=== PATIENT | male | born 1975 | race Caucasian/White ===

== ENCOUNTER 2020-01-07 14:42 | Emergency (ER) | payer SELFPAY ==
--- NOTE | 2020-01-07 14:56 | EDM.PDOC ---
ED HPI GENERAL MEDICAL PROBLEM - General Chief Complaint: Lower Extremity Injury/Pain Stated Complaint: BILATERAL LEG PAIN Time Seen by Provider: 01/07/20 14:56 Source of Information: Reports: Patient History Limitations: Reports: No Limitations - History of Present Illness INITIAL COMMENTS - FREE TEXT/NARRATIVE: 44-year-old male attends the ED with complaints of pain in both of his legs. He is unsure if the complaints are related or not. He reports that he dropped something on the ground and squatted down to pick it up the other day( WednesdayJan 04) and then stood up abruptly and felt a pulling tearing sensation in his anterior thighs bilaterally but worse on the left side. He states this area seems to be getting a bit better over the last day or so but he is developed increased redness and swelling on the inner aspect of his right thigh. He has no systemic signs of illness such as fever chills nausea or vomiting. Apparently was seen at the walk-in clinic earlier today and did have lab work performed and then sent to the ED for evaluation of the inner aspect of his right thigh to make sure that he did not have a blood clot. Onset: Sudden Onset Date: 01/05/20 (Tear distal quadriceps pain and tenderness left leg starting 2 days ago. Inflammation inner aspect of right thigh starting 2 days ago with increasing redness up towards the groin.) Duration: Day(s):, Getting Worse Location: Reports: Lower Extremity, Left (Has pain in the distribution of the l ower quadriceps musculature left leg.), Lower Extremity, Right (Right lower extremity shows inflammation and erythema from the knee to the groin on the medial aspect of the thigh.) Quality: Reports: Ache, Burning (Pain in the left leg is described as an ache. Pain in the right thigh is more of a burning sharp pain irritated by clothing.) Severity: Moderate Improves with: Reports: Rest Worsens with: Reports: Other Context: Denies: Activity (As with walking and movement in particular trying to walk upstairs.), Exercise, Lifting, Sick Contact, Trauma, Other Associated Symptoms: Reports: No Other Symptoms Treatments [employer] REPAIRER: Reports: NSAIDS Bilateral Upper Leg Pain Score (Numeric/FACES): 8 - Related Data Allergies Allergy/AdvReac Type Severity Reaction Status Date / Time No Known Allergies Allergy Verified 01/07/20 15:01 Home Meds: Home Meds Allopurinol [Zyloprim] 100 mg PO DAILY 01/07/20 [History] Doxycycline [Vibra-Tabs] 100 mg PO Q12HR #24 tab 01/07/20 [Rx] hydroCHLOROthiazide [Hydrochlorothiazide] 25 mg PO DAILY 01/07/20 [History] lisinopriL [Lisinopril] 20 mg PO DAILY 01/07/20 [History] Past Medical History Cardiovascular History: Reports: Hypertension Musculoskeletal History: Reports: Gout Endocrine/Metabolic History: Reports: Obesity/BMI 30+ Dermatologic History: Reports: Other (See Below) (Patient has a chronic dermatitis of both upper and lower extremities as well as his abdomen and chest. He has been doctoring with numerous global marketing coordinator for this rash for the last 3 years. The initial inflammation appear to be a contact dermatitis. He uses various creams to control the inflammation. He still has open wounds on both lower extremities in the distribution of work boots and neoprene rubber boots.) Social & Family History - Living Situation & Occupation Living situation: Reports: Single Occupation: Employed Review of Systems - Review of Systems Review Of Systems: See Below Constitutional: Denies: Chills, Diaphoresis, Fever, Weakness, Other Eyes: Reports: No Symptoms Ears: Reports: No Symptoms Nose: Reports: No Symptoms Mouth/Throat: Reports: No Symptoms Respiratory: Reports: Shortness of Breath Cardiovascular: Reports: Other GI/Abdominal: Reports: Other (Obesity) Genitourinary: Reports: No Symptoms Musculoskeletal: Reports: Back Pain Skin: Reports: Other (She has chronic eczema with scarring and hyperpigmentation and numerous lesions on his arms legs back chest and abdomen and upper thighs. On his lower extremities below the knees he has open wounds with skin sloughing most likely due to chronic inflammation from dermatitis. I am suspicious that it may be from neoprene rubber in his work boots.) Psychiatric: Reports: No Symptoms ED EXAM, GENERAL - Physical Exam Exam: See Below Exam Limited By: No Limitations General Appearance: Alert, WD/WN, Anxious, Other (Temperature is 36.6. Heart rate is 114 but he is quite excited. Respiratory is 20 O2 sats 96% on room air BP slightly elevated at 158/96. He states he is been without his blood pressure pills for the last 3 days but did get them filled at the clinic today.) Eye Exam: Bilateral Eye: Normal Inspection, PERRL Extremities: Other (Examination of the left lower extremity reveals tenderness throughout the lower portion of the quadriceps tendon. There is no evidence that the tendon has ruptured. When he fully extends the leg he has increased pain in the distribution of the quadriceps tendon. Patient reassured this is a tendon strain and will heal over the next week to 10 days providing he does not do much climbing. On the right leg he has an area of erythema that travels from the medial knee up to the groin and is slightly widened in different areas up to 8 cm. It is very warm to palpation compatible with a cellulitis. There is a nodularity along the greater saphenous vein towards the knee. Therefore bedside ultrasound was performed which shows no evidence of DVT in the common femoral vein or the greater saphenous vein and normal augmentation.) Neurological: Alert, Oriented, CN II-XII Intact, Normal Cognition Psychiatric: Normal Affect, Normal Mood, Anxious Course - Vital Signs Last Recorded V/S: Last Vital Signs Temp 36.6 C 01/07/20 14:54 Pulse 114 H 01/07/20 14:54 Resp 20 01/07/20 14:54 BP 158/96 H 01/07/20 14:54 Pulse Ox 96 01/07/20 14:54 - Orders/Labs/Meds Orders: Active Orders 24 hr Category Date Time Status cefTRIAXone [Rocephin] 1 gm Med 01/07/20 15:15 Active Lidocaine 1% [Xylocaine 1%] 2.1 ml IM Q24H Medication Orders Ceftriaxone Sodium 1 gm/ (Lidocaine HCl 2.1 ml) 0 gm IM Q24H [facility] Meds: Medications Generic Name Dose Route Start Last Admin Trade Name David PRN Reason Stop Dose Admin Ceftriaxone Sodium 1 gm/ 0 gm 01/07/20 15:15 Lidocaine HCl 2.1 ml IM Q24H [facility] - Radiology Interpretation Free Text/Narrative:: 44-year-old male attends the ED with bilateral lower extremity pain. He is not certain of why or how problems necessarily occurred but he suspicious. He reports on Wednesday he bent down quickly to bead picker something from the ground and he squatted. On the way back up he felt a pulling straining sensation in both anterior aspects of his quadriceps. The left remains quite tender to touch but is somewhat better today than it was yesterday. However he is developed redness and swelling of the inner aspect of his right thigh which is different than what he is experiencing on the left side. Examination reveals tenderness throughout the quadriceps muscle in the distal one third on the left side. There is no true tear of the quadriceps tendon. Pain is worse with full extension of the knee joint. Examination of the inner aspect of his right thigh reveals reveals an area of cellulitis extending from just behind the knee all the way up to the right groin. He does follow the distribution of the greater saphenous vein. Bedside ultrasound reveals no sign of a DVT in the greater saphenous vein or common femoral vein and both were easily augmentable. Patient received Rocephin 1 g intramuscularly for acute treatment of infection under the skin or cellulitis. Placed on doxycycline 100 mg twice daily for the next 12 days starting tonight with his first tablet. He is to expect marked improvement in the next 48 to 72 hours. He will return if he develops fever chills nausea vomiting etc. Advised the left leg will gradually get better over the next week to 10 days. Departure - Departure Time of Disposition: 15:11 Disposition: Home, Self-Care 01 Condition: Fair Clinical Impression: Cellulitis of right thigh, Strain of left quadriceps muscle, fascia and tendon, initial encounter - Discharge Information *PRESCRIPTION DRUG MONITORING PROGRAM REVIEWED*: Not Applicable *COPY OF PRESCRIPTION DRUG MONITORING REPORT IN PATIENT KELSY: Not Applicable Prescriptions: Doxycycline [Vibra-Tabs] 100 mg PO Q12HR #24 tab Instructions: Quadriceps Strain, Cellulitis, Adult, [id number] Referrals: PCP,None [Primary Care Provider] - Forms: ED Department Discharge Additional Instructions: Evaluation in the emergency room today in regards to bilateral leg pain for different reasons. As you indicated you squatted suddenly to pick something off the ground and then stood up abruptly the other day and felt a pull tearing pain in your left leg and noted pain on the inner aspect of your right thigh as well. Examination of the left leg does reveal some hematoma or blood in the muscle belly of the quadriceps muscle on the left thigh. There is no true tear of the muscle but only a partial injury to the underlying muscle from acute strain. This will take about 7 to 10 days to return to normal providing you do not work at that hard by climbing etc. The problem on the inner aspect of the right thigh is that of an infection called cellulitis which is infection under the skin. This appears to be secondary to open wounds on your right lower leg from chronic eczema. Ultrasound reveals no evidence of a blood clot in the greater saphenous vein that runs in the same distribution. Initial treatment was an antibiotic called Rocephin which you were given intramuscularly in the emergency room. You will need to take oral antibiotic doxycycline 100 mg twice daily for the next 12 days to clear this infection up completely. Suggest taking the first tablet tonight after supper. If it has been more than 2 days since injury to the left quadriceps muscle applying heat to the area may help it heal a bit faster. Suggest a heating pad or hot water bottle to treat the area for 1/2- hour out of every 4 hours. Sepsis Event Note (ED) - Evaluation Sepsis Screening Result: No Definite Risk - Focused Exam Vital Signs: Vital Signs Temp Pulse Resp BP Pulse Ox 01/07/20 14:54 36.6 C 114 H 20 158/96 H 96 - My Orders Last 24 Hours: My Active Orders 01/07/20 15:15 cefTRIAXone [Rocephin] 1 gm Lidocaine 1% [Xylocaine 1%] 2.1 ml IM Q24H - Assessment/Plan Last 24 Hours: My Active Orders 01/07/20 15:15 cefTRIAXone [Rocephin] 1 gm Lidocaine 1% [Xylocaine 1%] 2.1 ml IM Q24H
[2020-01-07] MEDS ORDERED: cefTRIAXone 1 GM, Lidocaine 1% 2.1 ML IM SCH ×2 (15:15)
== END 2020-01-07 15:30 | disposition home or self-care (01) ==
LOC: JD.ED 14:42
DX: S76.112A Strain of left quadriceps muscle, fascia and tendon, initial encounter (principal); L03.115 Cellulitis of right lower limb; I10 Essential (primary) hypertension; M10.9 Gout, unspecified; E66.9 Obesity, unspecified; Z68.36 Body mass index [BMI] 36.0-36.9, adult; Z79.899 Other long term (current) drug therapy; X58.XXXA Exposure to other specified factors, initial encounter
CPT/HCPCS: 96372; 99283; J0696; J2001; 99284